=== PATIENT | female | born 2000 | race American Indian/Alaskan Native ===

== ENCOUNTER 2018-04-18 15:53 | Inpatient (IN) | payer MEDICAID ==
[2018-04-18] MEDS: LACTATED RINGERS 1,000 ML IV SCH ×3 (19:20→22:24)
[2018-04-18 19:39] LABS: Basophils % (Auto) 0.3 % (0.0-1.8); Eosinophils % (Auto) 0.1 % (0.0-4.3); Hematocrit 28.8 % (30.3-42.9); Hemoglobin 9.2 gm/dl (10.1-14.3); Lymphocytes # (Auto) 1.9 K/mm3 (1.2-5.4); Lymphocytes % (Auto) 11.8 % (13.4-35.0); Mean Corpuscular HGB Conc 32 % (30-34); Mean Corpuscular Volume 83 fl (79-97); Monocytes # (Auto) 0.9 K/mm3 (0.0-0.8); Monocytes % (Auto) 5.5 % (0.0-7.3); Platelet Count 198 K/mm3 (140-440); Red Blood Count 3.47 M/mm3 (3.65-5.03); Red Cell Distribution Width 15.7 % (13.2-15.2)
[2018-04-18] MEDS ORDERED: STADOL IV PRN (20:51)
[2018-04-18] MEDS ORDERED: XYLOCAINE 2% INFILTRATI ONE (21:31)
[2018-04-18] MEDS ORDERED: MINERAL OIL PO PRN (21:31)
[2018-04-18] MEDS ORDERED: BRETHINE IVP PRN (21:31)
[2018-04-18] MEDS ORDERED: SUBLIMAZE IV PRN (21:31)
[2018-04-18] MEDS ORDERED: BRETHINE SUB-Q PRN (21:31)
[2018-04-18] MEDS ORDERED: NARCAN 2 MG/2 ML IV PRN (21:35)
--- NOTE | 2018-04-18 21:37 | Anesthesia Consultation ---
Anesthesia Consult and Med Hx - Airway Anesthetic Teeth Evaluation: Good ROM Head & Neck: Adequate Mental/Hyoid Distance: Adequate Mallampati Class: Class I Intubation Access Assessment: Good - Pulmonary Exam CTA: Yes - Cardiac Exam Cardiac Exam: RRR - Pre-Operative Health Status ASA Pre-Surgery Classification: ASA2 Proposed Anesthetic Plan: Epidural - Pulmonary Hx Smoking: No Hx Asthma: No COPD: No Hx Pneumonia: No - Cardiovascular System Hx Hypertension: No - Central Nervous System Hx Seizures: No Hx Psychiatric Problems: No - Endocrine Hx Renal Disease: No Hx End Stage Renal Disease: No Hx Hypothyroidism: No Hx Hyperthyroidism: No - Hematic Hx Anemia: No Hx Sickle Cell Disease: No - Other Systems Hx Alcohol Use: No
--- NOTE | 2018-04-18 21:38 | Anesthesia Day of Surgery ---
Anesthesia Day of Surgery - Day of Surgery Patient Examined: Yes Patient H&P Reviewed: Yes Patient is NPO: Yes Beta Blockers: No Cardiac Clearance: No Pulmonary Clearance: No Brayan's Test: N/A
[2018-04-18] MEDS ORDERED: MARCAINE 0.25% INFILTRATI ONE (21:41)
[2018-04-18] MEDS ORDERED: LIDOCAINE 1.5%/EPI 1:200,000 INFILTRATI ONE (21:41)
--- NOTE | 2018-04-18 21:55 | History and Physical Report ---
History of Present Illness Date of examination: 04/18/18 Date of admission: 04/18/18 19:05 Chief complaint: I'm having contractions History of present illness: Patient is a 17 year old who presents at 40.2 weeks in active labor. She has had an uncomplicated course except for late presentation to care. She is approximately 10 months post delivery. Past History Past Medical History: no pertinent history Past Surgical History: no surgical history Social history: single - Obstetrical History Expected Date of Delivery: 04/16/18 Actual Gestation: 40 Week(s) 2 Day(s) : 2 Medications and Allergies Allergies Allergy/AdvReac Type Severity Reaction Status Date / Time No Known Allergies Allergy Verified 04/18/18 16:23 Active Meds: Active Medications Butorphanol Tartrate (Stadol) 2 mg IV Q2H PRN PRN Reason: Labor Pain Last Admin: 04/18/18 21:00 Dose: 2 mg Documented by: Lactated Ringer's (Lactated Ringers) 1,000 mls @ 125 mls/hr IV DIRECT ALEX Last Admin: 04/18/18 21:01 Dose: 125 mls/hr Documented by: Review of Systems All systems: negative Constitutional: weight gain Genitourinary: leakage of fluid, contractions - Vital Signs Vital signs: Vital Signs Pulse BP 121 H 122/78 04/18/18 16:15 04/18/18 16:15 Temp Pulse Resp BP Pulse Ox 99.9 F H 113 H 18 116/70 97 04/18/18 19:36 04/18/18 21:32 04/18/18 21:00 04/18/18 21:32 04/18/18 21:29 - Physical Exam Breasts: Positive: deferred Cardiovascular: Regular rate, Normal S1, Normal S2 Lungs: Positive: Clear to auscultation, Normal air movement Abdomen: Positive: normal appearance, soft, normal bowel sounds. Negative: distention, tenderness Vulva: both: normal Vagina: Positive: normal moisture. Negative: discharge Cervix: Negative: lesion, discharge Uterus: Positive: normal size, normal contour Adnexa: both: normal Anus/Rectum: Positive: normal perianal skin, heme negative. Negative: rectal mass, hemorrhoids Extremities: Deep Tendon Reflex Grade: Normal +2 - Obstetrical FHR: auscultation normal Cervical Dilatation: 4 Cervical Effacement Percentage: 70 Results Result Diagrams: 04/18/18 19:20 Abnormal lab results 04/18/18 Range/Units 19:20 WBC 15.9 H (4.5-11.0) K/mm3 RBC 3.47 L (3.65-5.03) M/mm3 Hgb 9.2 L (10.1-14.3) gm/dl Hct 28.8 L (30.3-42.9) % MCH 26 L (28-32) pg RDW 15.7 H (13.2-15.2) % Lymph % (Auto) 11.8 L (13.4-35.0) % [place] # 0.9 H (0.0-0.8) K/mm3 Seg Neutrophils % 82.3 H (40.0-70.0) % Seg Neutrophils # 13.1 H (1.8-7.7) K/mm3 All other labs normal. Assessment and Plan IPU at 40.2 weeks in active labor. Admit for labor. Augment if needed. Anticipate .
[2018-04-18] MEDS ORDERED: fentaNYL-BUPIV 2 MCG/ML-0.125% 200 MCG/100 ML BAG EPIDURAL SCH (22:00)
[2018-04-18] MEDS ORDERED: PITOCin/NS 30 UNIT/500ML 30 UNITS/500 ML BAG IV SCH ×2 (22:00)
[2018-04-19] MEDS: LACTATED RINGERS 1,000 ML IV SCH (00:49)
[2018-04-19] MEDS: PITOCin/NS 20 UNIT/1000ML DRIP 20 UNITS/1,000 ML BAG IV SCH ×2 (01:55→03:06)
--- NOTE | 2018-04-19 02:12 | Procedure Note ---
OB Delivery Note - Delivery Date of Delivery: 04/19/18 Surgeon: RAI PIERRE Estimated blood loss: 300cc - Vaginal Delivery presentation: vertex Delivery position: OA Intrapartum events: meconium Delivery induction: none Delivery augmentation: rupture of membranes Delivery monitor: external FHT, external uterine Route of delivery: Delivery placenta: spontaneous Delivery cord: nuchal cord (x2), 3 umbilical vessels Episiotomy: none Delivery laceration: none, 1st degree Anesthesia: epidural Delivery comments: Viable male delivered over intact perineum at 0147. Tight nuchal cord x 2 clamped and cut on perineum. Infant had spontaneous breath but not vigorous cry. NICU called to assess. Placenta delivered spontaneously and intact with 3vc. Small superficial laceration repaired with 2.0 vicryl. Patient tolerated procedure well. Excellent hemostasis. - Infant A at 1 minute: 7 at 5 minutes: 9 Gender: Male (7 pounds 0 ounces)
[2018-04-19] MEDS ORDERED: TUCKS PAD TP PRN (04:14)
[2018-04-19] MEDS ORDERED: LANSINOH TP PRN (04:14)
[2018-04-19] MEDS ORDERED: BENADRYL PO PRN (04:14)
[2018-04-19] MEDS ORDERED: PHENERGAN PO PRN (04:14)
[2018-04-19] MEDS ORDERED: MILK OF MAGNESIA PO PRN (04:14)
[2018-04-19] MEDS ORDERED: NORCO 5/325 PO PRN (04:14)
[2018-04-19] MEDS ORDERED: TYLENOL PO PRN (04:14)
[2018-04-19] MEDS ORDERED: SODIUM CHLORIDE FLUSH SYRINGE 10 ML IV NR (04:14)
[2018-04-19] MEDS ORDERED: DULCOLAX PR PRN (04:14)
[2018-04-19] MEDS ORDERED: PHENERGAN PR PRN (04:14)
[2018-04-19] MEDS ORDERED: ZOFRAN IV PRN (04:14)
[2018-04-19] MEDS: IBUPROFEN PO SCH ×3 (04:49→17:38)
[2018-04-19] MEDS ORDERED: PRENATAL VITAMIN PO SCH (10:00)
[2018-04-19] MEDS: COLACE PO SCH ×2 (10:16→21:12)
[2018-04-19 14:55] LABS: Hematocrit 25.8 % (30.3-42.9); Hemoglobin 8.4 gm/dl (10.1-14.3)
--- NOTE | 2018-04-20 10:02 | Progress Note ---
Assessment and Plan PPD 1 s/p . Doing well Subjective - Subjective Date of service: 04/20/18 Interval history: Patient is a 17 year old who presents at 40.2 weeks in active labor. She has had an uncomplicated course except for late presentation to care. She is approximately 10 months post delivery. Patient reports: appetite normal, voiding normally, pain well controlled, ambulating normally [place]: doing well Objective - Vital Signs Latest vital signs: Vital Signs Temp Pulse Resp BP BP Pulse Ox 04/20/18 00:00 98.0 F 91 H 18 114/62 04/19/18 15:48 98.2 F 103 H 18 108/64 98 04/19/18 11:50 98.2 F 95 H 18 97/59 97 Intake and Output 04/19/18 04/20/18 04/20/18 22:59 06:59 14:59 Intake Total 480 240 Balance 480 240 Intake: Oral 240 240 Intake, Free Water 240 Other: Total, Intake Amount 240 240 # Voids Void 1 1 - Exam Breasts: Present: deferred Cardiovascular: Present: Regular rate, Normal S1, Normal S2 Lungs: Present: Clear to auscultation, Normal air movement Abdomen: Present: normal appearance, soft, normal bowel sounds Vulva: both: normal Uterus: Present: normal, firm Extremities: Present: normal - Labs Labs: Abnormal lab results 04/19/18 Range/Units 14:41 Hgb 8.4 L (10.1-14.3) gm/dl Hct 25.8 L (30.3-42.9) %
--- NOTE | 2018-04-20 10:03 | Discharge Summary ---
Providers - Providers Date of Admission: 04/18/18 19:05 Date of discharge: 04/20/18 Attending physician: RAI PIERRE Primary care physician: RAI PIERRE Hospitalization Reason for admission: active labor Delivery: Episiotomy: none Discharge diagnosis: IUP at term delivered [place] baby: male Hospital course: unremarkable Condition at discharge: Good Disposition: DC-01 TO HOME OR SELFCARE Plan - Discharge Medications Prescriptions: HYDROcodone/APAP 5-325 [[place] 5/325] 1 each PO Q6HR PRN #15 tablet PRN Reason: Pain Ibuprofen [Motrin] 800 mg PO Q8HR PRN #30 tablet PRN Reason: Pain, Mild (1-3) - Provider Discharge Summary Activity: routine, no sex for 6 weeks, no heavy lifting 4 weeks, no strenuous exercise Diet: routine Instructions: routine Additional instructions: [] Smoking cessation referral if applicable(refer to patient education folder for contact #) [] Refer to [facility] Call your doctor immediately for: * Fever > 100.5 * Heavy vaginal bleeding ( >1 pad per hour) * Severe persistent headache * Shortness of breath * Reddened, hot, painful area to leg or breast * Drainage or odor from incision. * Keep incision clean and dry at all times and follow doctor's instructions regarding bathing/showering - Follow up plan Follow up: RAI PIERRE MD [Primary Care Provider] - 6 Weeks
[2018-04-20 14:52] VITALS: BP 105/76
== END 2018-04-20 14:25 | disposition home or self-care (01) | DRG 775 ==
LOC: TRG 15:53 → LD 19:05 → OB 04-19 03:42
PROVIDERS: ADMIT Obstetrics & Gynecology; ATTEND Obstetrics & Gynecology
PROC: 10E0XZZ Delivery of Products of Conception, External Approach (ICD-10-PCS; principal; 2018-04-19)
PROC: 0HQ9XZZ Repair Perineum Skin, External Approach (ICD-10-PCS; 2018-04-19)
PROC: 3E0R3BZ Introduction of Anesthetic Agent into Spinal Canal, Percutaneous Approach (ICD-10-PCS; 2018-04-19)
PROC: 00HU33Z Insertion of Infusion Device into Spinal Canal, Percutaneous Approach (ICD-10-PCS; 2018-04-19)
DX: O69.1XX0 Labor and delivery complicated by cord around neck, with compression, not applicable or unspecified (principal); O77.0 Labor and delivery complicated by meconium in amniotic fluid; O70.0 First degree perineal laceration during delivery; Z3A.40 40 weeks gestation of pregnancy; Z37.0 Single live birth
CPT/HCPCS: 36415; 85014; 85018; 85025; 86850; 86900; 86901; G0378; J0595; J2590; J7120